=== PATIENT | female | born 1960 | race Caucasian/White ===

== ENCOUNTER 2019-10-27 00:27 | Emergency (ER) | payer OTHER, SELFPAY ==
--- NOTE | 2019-10-27 00:34 | ED_ITS ---
Entered by Silvia Jolly, acting as scribe for Lashell Smith HPI - General Adult General: Chief complaint: General Medical Stated complaint: BLOOD PRESSURE ISSUES Time Seen by Provider: 10/27/19 00:34 Source: patient Mode of arrival: ambulatory Limitations: no limitations History of Present Illness: HPI narrative: Patient was sent in by [facility] for low blood pressure. She states they were getting pressures in the 80s but they were not using a stethoscope and is uncertain how they were even accurately taking her blood pressure. Patient states she has no symptoms. She has no lightheadedness, dizziness, syncope, near syncope, chest pain, shortness of breath or any other concerns. She came in slowly to help keep her place at [facility] per their instruction. 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) Radiation: non-radiation Associated symptoms: Deny chest pain, confusion, diaphoresis, dyspnea, headache(s), malaise, nausea, rash, palpitations, syncope or vomiting Review of Systems General: Reports: other (negative unless marked) Const: Denies: fever, chills, body aches, fatigue, malaise or diaphoresis Eyes: Denies: change in vision or blurry vision ENMT: Denies: throat pain, painful swallowing, hoarseness, ear pain, ear discharge, Change in hearing or nasal discharge Card: Denies: chest pain, palpitations, irregular heart rhythm, syncope, pre- syncope, shortness of breath on exertion or shortness of breath when lying down Resp: Denies: shortness of breath, productive cough, non-productive cough, wheezing, coughing up blood or chest congestion GI: Denies: abdominal pain, nausea, vomiting, vomiting blood, coffee grounds in vomit, diarrhea, constipation, cramping, blood in stool or black tarry stool : Denies: flank pain, painful urination, urinary frequency, urinary urgency, decreased urine ouput, urinary incontinence or blood in urine Musc: Denies: neck pain, back pain, extremity pain, extremity swelling, joint pain, joint swelling, joint warmth or joint stiffness Skin/Breast: Denies: rash, skin tenderness or yellow skin Neuro: Denies: headache, numbness in extremities, weakness in extremities, changes in sensation, lack of coordination, difficulty walking, dizziness, vertigo or confusion Endo: Denies: excessive thirst, tired all the time, cold intolerance, excessive sweating, flushing or hot flashes Derrick/Lymph: Denies: easy bruising, easy bleeding, petechiae or enlarged lymph nodes All/Imm: Denies: hives, throat swelling, tongue swelling, facial swelling or acute wheezing PFSH ED PFSH: Statuses (acute, chronic, etc) shown below reflect problem list status as previously entered and may not be historically accurate Social History Smoking and tobacco status: current every day smoker Physical Exam Const: COMMON NORMALS: no apparent distress, oriented x3, no limitations, healthy appearing and well nourished EXAM LIMITATIONS: no altered mental status GENERAL APPEARANCE: cooperative, well kempt and well developed O RIENTATION/CONSCIOUSNESS: Yes awake HENMT: COMMON NORMALS: normocephalic, head/scalp atraumatic, hearing grossly normal bilaterally, external ears normal, EAC's normal, external nose normal and moist oral mucous membranes HEAD & SCALP: normal to inspection, normocephalic and atraumatic FACE & SINUS: normal facial exam and face symmetric NOSE: external nose normal and nares normal EXTERNAL EAR: Yes external ears normal EXTERNAL AUDITORY CANAL: EAC's normal MOUTH: oral and palatal mucosa normal and tongue normal Eye: COMMON NORMALS: PERRL, EOMs intact bilaterally, conjunctivae normal and no scleral icterus GENERAL EYE: normal appearance of both eyes and normal light reflex CONJUNCTIVA: Yes conjunctivae normal SCLERA: sclerae normal CORNEA: Yes corneas normal PUPIL: Yes PERRL DIRECT OPHTHALMOSCOPY: Yes n ormal light reflex Neck/C-Spine: COMMON NORMALS: full ROM, no lymphadenopathy, supple, no meningeal signs and no JVD GENERAL: Yes normal visual inspection and Yes trachea midline CERVICAL SPINE: Yes cervical ROM normal Chest: COMMONS NORMALS: inspection of chest normal and palpation of chest normal Resp: COMMON NORMALS: normal respiratory effort, no retractions, no use of accessory muscles and clear to auscultation bilaterally EFFORT & INSPECTION: Yes able to speak in complete sentences AUSCULTATION: clear to auscultation bilaterally Cardio: COMMON NORMALS: no JVD, regular rate, regular rhythm, S1 normal heart sound, S2 normal heart sound, no gallops, no clicks, no murmurs and no rub JUGULAR VENOUS DISTENTION: no JVD RATE: regular rate RHYTHM: regular rhythm HEART SOUNDS: S1 normal and S2 normal GI: COMMON NORMALS: soft to palpation, non-tender, no hepatosplenomegaly and no masses INSPECTION: Yes normal to inspection PALPATION: Yes soft and Yes no hepatosplenomegaly : COMMON NORMALS: Yes no CVA tenderness BLADDER/KIDNEY EXAM: Yes no CVA tenderness Back/Pelvis: COMMON NORMALS: no CVA tenderness, thoracic and lumbar spine normal to inspection, no thoracic nor lumbar tenderness and thoraco-lumbar ROM normal Extremity: COMMON NORMALS: normal to inspection, full ROM, normal capillary refill, no joint enlargement, no clubbing, cyanosis or edema and no calf tenderness Neuro: COMMON NORMALS: oriented x3, CN's II-XII intact bilaterally, moves all extremities, no focal motor deficits and no sensory deficits noted MENINGEAL SIGNS: Yes no meningeal signs Psych: COMMON NORMALS: mental status grossly normal, thought process normal, cooperative, affect normal, speech normal and activity/motor behavior normal APPEARANCE: Yes well kempt SPEECH: Yes normal speech THOUGHT PROCESS: normal thought process Skin: COMMON NORMALS: no rashes or lesions noted, skin turgor normal, no jaundice, no petechiae and no mottling GENERAL SKIN EXAM: no rashes or lesions noted and turgor normal Course Vital Signs: Vital signs: Vital Signs Temperature 97.5 F L 10/27/19 00:35 Pulse Rate 64 10/27/19 00:35 Respiratory Rate 18 10/27/19 00:46 Blood Pressure 110/42 10/27/19 00:46 Pulse Oximetry 94 10/27/19 00:35 MDM - General Adult MDM Narrative: Medical decision making narrative: The patient has no symptoms whatsoever and on multiple repeat blood pressure checks in both arms she is not hypotensive. Her blood pressures in the 100s to 1 teens. She has no complaints. Her vital signs are stable she is declining any work-up. I think this is appropriate and will discharge her home. She does understand she is free to return should she change her mind. Discharge Plan Discharge Patient Disposition: Home, Self-Care Clinical Impression: Hypotension, unspecified Qualifiers: Hypotension type: unspecified hypotension type Qualified Code(s): I95.9 - Hypotension, unspecified Condition: Stable Discharge Orders: Discharge Order (Routine); Ordered 10/27/19 Ordered By: Lashell Smith Referrals: Jadiel Vitale DO [Family Provider] - Harini Alonso DO [Physician] - 1 week Discharge Diet: Usual diet Discharge Activity: Resume usual activity Activity Restrictions/Additional Instructions: Please return to the ER immediately for any of the signs or symptoms listed on your discharge instruction sheets, worsening/changing of your symptoms, you are not getting better as quickly as expected, or for ANY other cause or concerns. You were sent here to be evaluated for low blood pressure but on multiple repeat exams you do not have low blood pressure. Without having any complaints I believe you are fine to go back to [facility]. Coding Level of Care Code ED Associate for Chg Fwd Exam Problem Focused The documentation recorded by the Rik cedeño Bridget Annette, accurately reflects the service I personally performed and the decisions made by me, Lashell Smith
[2019-10-27 00:35] VITALS: BP 101/55; PULSE 64; RESP 16; TEMP 36.4; O2SAT 94; BMI 17.2
[2019-10-27 00:46] VITALS: BP 110/42; RESP 18
== END 2019-10-27 01:02 | disposition home or self-care (01) ==
PROVIDERS: Emergency Provider Emergency Medicine; Family Provider Family Medicine
DX: I95.9 Hypotension, unspecified (principal); F17.210 Nicotine dependence, cigarettes, uncomplicated
CPT/HCPCS: 99281

== ENCOUNTER → 2020-04-24 14:00 | Outpatient (BNVA) | payer OTHER, SELFPAY | PROVIDERS: Family Provider Family Medicine; Visit Provider Nurse Practitioner Family | DX: Z20.828 Contact with and (suspected) exposure to other viral communicable diseases (principal) | CPT/HCPCS: 87635 ==

== ENCOUNTER → 2020-05-22 16:03 | Outpatient (BNVA) | payer OTHER, SELFPAY | PROVIDERS: Family Provider Family Medicine; Referring Provider Dermatology; Visit Provider Dermatology | DX: D48.9 Neoplasm of uncertain behavior, unspecified (principal); Z85.828 Personal history of other malignant neoplasm of skin; L57.0 Actinic keratosis; D17.9 Benign lipomatous neoplasm, unspecified; L98.9 Disorder of the skin and subcutaneous tissue, unspecified; D17.24 Benign lipomatous neoplasm of skin and subcutaneous tissue of left leg; F17.210 Nicotine dependence, cigarettes, uncomplicated | CPT/HCPCS: 11102; 17000; 17003; 88304; 88305; 99203; 99204 ==

== ENCOUNTER → 2020-06-27 08:50 | Outpatient (BNVA) | payer OTHER, SELFPAY | PROVIDERS: Family Provider Family Medicine; PCP Family Medicine; Visit Provider Dermatology | DX: C76.8 Malignant neoplasm of other specified ill-defined sites (principal); D48.9 Neoplasm of uncertain behavior, unspecified | CPT/HCPCS: 11602; 12032; 88304 ==

== ENCOUNTER 2020-07-11 13:56 | Outpatient (CLI) | payer OTHER, SELFPAY ==
--- NOTE | 2020-07-11 14:07 | CT_ITS ---
WS: [id number] LDCT LUNG CANCER SCREENING HISTORY: NICOTINE dependence, cigarettes. TECHNIQUE: Axial imaging performed from the apices to 1 cm below the costophrenic angles. Coronal and sagittal reformats are submitted with axial MIP series. All CT scans at [facility] use at least one of these dose optimization techniques: automated exposure control; mA and/or kV adjustment per patient size (includes targeted exams where dose is matched to clinical indication); or iterativ e reconstruction. DLP: 57.17 mGy.cm DIvol: 1.52 mGy COMPARISON: None available. Diagnostic quality: Satisfactory Lung Nodules: No pulmonary nodules or endobronchial lesions. No groundglass attenuation. Lungs: Moderate pulmonary emphysema. Heart: Normal size heart. Mild coronary artery atherosclerosis. No pericardial effusion. Other findings: RIGHT posterior diaphragmatic hernia. Mild atherosclerosis aorta. Normal size pulmona ry artery. Small hiatal hernia. CT/CT lung screening [id number] IMPRESSION: LUNG-RADS: 1-Negative FOLLOW UP: 12 Month: Continue annual screening with LDCT OTHER FINDINGS (S MODIFIER): None.
== END 2020-07-11 13:57 | disposition home or self-care (01) ==
LOC: CT 13:57
PROVIDERS: PCP Family Medicine; Visit Provider Family Medicine
DX: Z12.2 Encounter for screening for malignant neoplasm of respiratory organs (principal); F17.210 Nicotine dependence, cigarettes, uncomplicated; I70.0 Atherosclerosis of aorta; K44.9 Diaphragmatic hernia without obstruction or gangrene
CPT/HCPCS: G0297

== ENCOUNTER → 2020-09-03 10:15 | Outpatient (BNVA) | payer OTHER, SELFPAY | PROVIDERS: PCP Family Medicine; Visit Provider Family Medicine | DX: Z20.828 Contact with and (suspected) exposure to other viral communicable diseases (principal); Z01.812 Encounter for preprocedural laboratory examination | CPT/HCPCS: 87635 ==

== ENCOUNTER → 2021-07-10 10:57 | Outpatient (BNVA) | payer OTHER, SELFPAY | PROVIDERS: PCP Family Medicine | DX: Z20.822 Contact with and (suspected) exposure to COVID-19 (principal) | CPT/HCPCS: 87635 ==

== ENCOUNTER → 2022-05-13 08:50 | Outpatient (BNVA) | payer OTHER, SELFPAY | PROVIDERS: PCP Family Medicine; Visit Provider Family Medicine | DX: F32.9 Major depressive disorder, single episode, unspecified (principal); J43.1 Panlobular emphysema; Z13.6 Encounter for screening for cardiovascular disorders | CPT/HCPCS: 80053; 80061; 85025 ==

== ENCOUNTER → 2024-04-29 09:45 | Outpatient (BNVA) | payer OTHER, SELFPAY | PROVIDERS: PCP Family Medicine | DX: I10 Essential (primary) hypertension (principal); J43.1 Panlobular emphysema; Z13.6 Encounter for screening for cardiovascular disorders | CPT/HCPCS: 80053; 80061; 84443; 85025 ==

== ENCOUNTER 2025-05-10 08:09 | Outpatient (CLI) | payer OTHER, SELFPAY ==
--- NOTE | 2025-05-10 08:17 | XR_ITS ---
WS: [id number] Chest 2 views, 05/10/2025 Clinical Data: COPD Comparison: Two-view chest, 03/19/2018 Findings: No nodules, masses or effusions are seen. The heart is normal. The pulmonary vascularity is not increased. No pneumonia or pneumothorax is seen. The diaphragms are flattened. The aortic arch shows tortuosity. There are old healed right rib fractures. XR/XR chest 2V* [id number] Impression: Hyperinflation and atherosclerosis.
[2025-05-10 08:47] VITALS: PULSE 92; RESP 22
== END 2025-05-10 08:10 | disposition home or self-care (01) ==
LOC: RT 08:12
PROVIDERS: PCP Nurse Practitioner Family; Visit Provider Family Medicine Adolescent Medicine
DX: J44.9 Chronic obstructive pulmonary disease, unspecified (principal); I70.90 Unspecified atherosclerosis; Q25.46 Tortuous aortic arch; J98.4 Other disorders of lung; Z87.81 Personal history of (healed) traumatic fracture
CPT/HCPCS: 71046; 94060; 94618; J7613

== ENCOUNTER 2025-08-25 15:31 | Emergency (ER) | payer MEDICARE, SELFPAY ==
[2025-08-25 15:36] VITALS: BP 127/67; PULSE 90; RESP 18; TEMP 36.9; O2SAT 94; BMI 18.3
--- NOTE | 2025-08-25 15:41 | XRR_ITS ---
PROCEDURE INFORMATION: Exam: XR Chest Exam date and time: 08/25/2025 3:46 PM Age: 65 years old Clinical indication: Shortness of breath; Additional info: SOB TECHNIQUE: Imaging protocol: Radiologic exam of the chest. Views: 1 view. COMPARISON: CR XR chest 2V* [id number] 05/10/2025 8:22 AM FINDINGS: Lungs: Hyperexpanded lungs; correlate for chronic obstructive pulmonary disease.No consolidative airspace disease. Pleural spaces: Unremarkable. No pleural effusion. No pneumothorax. Heart/Mediastinum: Unremarkable. No cardiomegaly. Bones/joints: Spinal scoliosis. Old rib fractures. XR/XR chest 1V portable [id number] IMPRESSION: No acute cardiopulmonary findings.
--- NOTE | 2025-08-25 15:41 | ECG_ITS ---
[facility] Test Date: 2025-08-25 Pat Name: Beatriz Atkinson Department: Room: Gender: Female Nutrition Worker: : 1960 Requested By: Bella Doyle Order Number: [id number] Alix MD: Wilfrido Frias M.D. Measurements Intervals Tilly Rate: 91 P: 81 MI: 113 QRS: 37 QRSD: 82 T: 69 QT: 338 QTc: 416 Interpretive Statements SINUS RHYTHM WITH SHORT MI INTERVAL POSSIBLE LEFT ATRIAL ENLARGEMENT [-0.1mV P-WAVE IN V1/V2] POSSIBLE LEFT VENTRICULAR HYPERTROPHY [VOLTAGE CRITERIA PLUS LAE OR QRS WIDENING] No previous ECG available for comparison Electronically Signed On 08-26-2025 15:39:16 ASSOCIATE FINANCIAL ADVISOR by Wilfrido Frias M.D. [email or web address]
[2025-08-25 16:17] LABS: Hematocrit 39.6 % (36-47); Hemoglobin 12.30 g/dL (11.27-16.99); Mean Corpuscular HGB Conc 31.1 g/dL (30-55); Mean Corpuscular Hemoglobin 28.7 pg (27-33); Mean Corpuscular Volume 92.5 fl (85-98); Nucleated Red Blood Cells % 0 %; Platelet Count 170 10^3/cmm (157-399); Red Blood Count 4.28 10^6/uL (3.85-5.65); White Blood Count 5.05 10^3/uL (3.29-11.43)
--- NOTE | 2025-08-25 16:37 | W.ED.URI ---
HPI - URI/Sore Throat General: Chief Complaint: Upper Respiratory Infection Stated Complaint: Headache SOB can't eat (COPD) Time Seen by Provider: 08/25/25 16:23 Source: patient Mode of arrival: ambulatory Limitations: no limitations History of Present Illness: 65-year-old female states that she has a history of COPD is on 4 L oxygen at baseline states that over the last 2 days she has had nasal congestion along with sinus pressure pain and a slight cough. Patient denies any fevers she is currently on her 4 L here in the 98% on that. Denies any chest pain. Denies any vomiting or diarrhea. Able to speak in full senses Related Data Previous Rx's ?Medication ?Instructions ?Recorded portable O2 with concentrator #1 ea 11/21/22 albuterol sulfate 2.5 mg/3 mL 2.5 mg (3 mL) inhalation Q6H #180 04/20/23 (0.083 %) solution for nebulization mL fluticasone propionate 50 1 spray intranasal BID #16 grams 08/22/24 mcg/actuation nasal spray,suspension (Flonase Allergy Relief) nebulizer, tubing, and supplies #1 ea 01/19/25 fluticasone fur. 100 mcg-umeclid 1 inh inhalation Q24H #60 ea 06/08/25 62.5 mcg-vilant 25 mcg inhalat.powder (Trelegy Ellipta) oxygen #1 ea 06/08/25 buspirone 10 mg tablet See Rx Instructions .Route 07/24/25 .COMPLEX #30 tabs RSVPreF3 antigen-AS01E 0.5 ml IM ONCE #1 ea 08/02/25 adjuvant(PF) 120 mcg/0.5 mL IM suspension, kit (Arexvy (PF)) citalopram 40 mg tablet See Rx Instructions .Route 08/08/25 .COMPLEX #90 tabs albuterol sulfate 90 mcg/actuation See Rx Instructions .Route 08/21/25 aerosol inhaler .COMPLEX #8.5 grams lisinopril 5 mg tablet See Rx Instructions .Route 08/23/25 .COMPLEX #30 tabs cephalexin 500 mg capsule 500 mg PO TID 7 days #21 caps 08/25/25 Allergies Allergy/AdvReac Type Severity Reaction Status Date / Time No Known Allergies Allergy Verified 06/08/25 09:03 PFSH ED PFSH: Medical History Hypertension COPD (chronic obstructive pulmonary disease) Depression Skin erosion History of nonmelanoma skin cancer Surgical History History of section History of tonsillectomy and adenoidectomy Family History Grandmother Cancer Social History Smoking and tobacco/nicotine status: current every day tobacco/nicotine user cigarettes Packs smoked per day: 0.5 Alcohol intake: never Substance/Drug Use: never Adopted: No service: No Current occupational exposures/hazards: No Physical Exam Const: COMMON NORMALS: patient oriented x3 HENMT: COMMON NORMALS: normocephalic and atraumatic HEAD & SCALP: normocephalic and atraumatic Neck/C-Spine: COMMON NORMALS: full ROM and supple Chest: COMMONS NORMALS: normal inspection of the chest Resp: COMMON NORMALS: No retractions and No use of accessory muscles AUSCULTATION: wheezes Cardio: COMMON NORMALS: regular rate RATE: regular rate Extremity: COMMON NORMALS: normal to inspection and full ROM Neuro: COMMON NORMALS: patient oriented x3, moves all extremities and no focal motor deficits Psych: COMMON NORMALS: mental status grossly normal, Normal thought process present and cooperative THOUGHT PROCESS: Normal thought process present Skin: COMMON NORMALS: no rashes or lesions noted and no wounds GENERAL SKIN EXAM: no rashes or lesions noted Course Vital Signs: Vital signs: Vital Signs Temperature 98.4 F 08/25/25 15:36 Pulse Rate 93 08/25/25 16:55 Respiratory Rate 18 08/25/25 15:36 Blood Pressure 148/71 08/25/25 16:55 Pulse Oximetry 98 08/25/25 16:55 Oxygen Delivery Me thod Nasal Cannula 08/25/25 16:55 Oxygen Flow Rate 4 08/25/25 16:55 MDM - URI/Sore Throat Medical Decision Making 65-year-old female extensive history of COPD is on home oxygen at 4 L had had some sinus congestion cough. Differential includes pneumonia, upper respiratory infection. She has been well-appearing here she is in no distress on her 4 L chest x-ray interpreted by me showed no signs of pneumonia. EKG interpreted by me showed normal sinus rhythm heart rate [address] or T wave abnormalities QRS 82 QTc 386. Labs show no significant abnormality. This is likely upper respiratory infection possible sinusitis did give her Decadron here will prescribe her Keflex for home she is to follow-up with her PCP and return if worsening she understands agrees to plan. Medical Records I reviewed the patient's medical records. Lab Data I reviewed the patient's lab results. 08/25/25 16:13 08/25/25 16:13 Radiology Impressions Chest X-Ray 08/25/25 15:41 IMPRESSION: No acute cardiopulmonary findings. Laboratory Results WBC 5.05 10^3/uL (3.29-11.43) 08/25/25 16:13 RBC 4.28 10^6/uL (3.85-5.65) 08/25/25 16:13 Hgb 12.30 g/dL (11.27-16.99) 08/25/25 16:13 Hct 39.6 % (36-47) 08/25/25 16:13 MCV 92.5 fl (85-98) 08/25/25 16:13 MCH 28.7 pg (27-33) 08/25/25 16:13 MCHC 31.1 g/dL (30-55) 08/25/25 16:13 RDW 13.2 % (12.1-15.1) 08/25/25 16:13 Plt Count 170 10^3/cmm (157-399) 08/25/25 16:13 MPV 8.4 fL (7.4-10.4) 08/25/25 16:13 Neut % (Auto) 49.8 % 08/25/25 16:13 Lymph % (Auto) 34.5 % 08/25/25 16:13 Pondera % (Auto) 11.3 % 08/25/25 16:13 Eos % (Auto) 3.2 % 08/25/25 16:13 Baso % (Auto) 1.0 % 08/25/25 16:13 Neut # (Auto) 2.52 10^3/uL (1.8-7.7) 08/25/25 16:13 Lymph # (Auto) 1.7 10^3/uL (0.8-4.8) 08/25/25 16:13 Pondera # (Auto) 0.6 10^3/uL (0.2-0.9) 08/25/25 16:13 Eos # (Auto) 0.2 10^3/uL (0.0-0.8) 08/25/25 16:13 Baso # (Auto) 0.1 10^3/uL (0.0-0.1) 08/25/25 16:13 Nucleated RBC % (auto) 0 % 08/25/25 16:13 Nucleated RBCs # 0.0 /100WBC 08/25/25 16:13 Sodium 134 mmol/L (136-145) L 08/25/25 16:13 Potassium 4.6 mmol/L (3.5-5.1) 08/25/25 16:13 Chloride 90 mmol/L (98-107) L 08/25/25 16:13 Carbon Dioxide 41 mmol/L (22-29) H 08/25/25 16:13 Anion Gap 7.6 (5-19) 08/25/25 16:13 BUN 7 mg/dL (8-23) L 08/25/25 16:13 Creatinine 0.4 mg/dL (0.5-0.9) L 08/25/25 16:13 GFR Calculation 160.2 mL/min (90-130) H 08/25/25 16:13 Glucose 101 mg/dL (65-115) 08/25/25 16:13 Calculated Osmolality 276 mOsm/kg (285-295) L 08/25/25 16:13 Calcium 9.9 mg/dL (8.5-10.5) 08/25/25 16:13 Total Bilirubin 0.2 mg/dL (0.15-1.2) 08/25/25 16:13 AST 16 U/L (0-32) 08/25/25 16:13 ALT 12 U/L (0-33) 08/25/25 16:13 Alkaline Phosphatase 72 U/L (35-105) 08/25/25 16:13 NT-Pro-B Natriuret Pep 195 pg/mL (0-125) H 08/25/25 16:13 Total Protein 6.3 g/dL (6.6-8.7) L 08/25/25 16:13 Albumin 4.2 g/dL (3.5-5.2) 08/25/25 16:13 Globulin 2.1 g/dL (1.3-4.6) 08/25/25 16:13 Influenza A (PCR) Negative (Negative) 08/25/25 16:22 Influenza Type B (PCR) Negative (Negative) 08/25/25 16:22 RSV (PCR) Negative (Negative) 08/25/25 16:22 SARS-CoV-2 (PCR) Negative (Negative) 08/25/25 16:22 All radiology interpretation(s) finalized by discharge EKG Data EKG 1: I personally reviewed and interpreted this EKG as follows: EKG interpretation date: 08/25/25 EKG interpretation time: 16:35 Interpretation: nsr hr [address] or t wave abnormalities qrs 82 qtc 386 Discharge Plan Discharge Patient Disposition: Home Clinical Impression: Upper respiratory infection Condition: Stable Prescriptions: New cephalexin 500 mg capsule 500 mg PO TID 7 Days Qty: 21 0RF No Action (DME) portable O2 with concentrator See Rx Instructions .Route .MEDSUPPLY Qty: 1 0RF Rx Instructions: At 2 L albuterol sulfate 2.5 mg /3 mL (0.083 %) solution for nebulization 2.5 mg inhalation Q6H Qty: 180 5RF (DME) nebulizer, tubing, and supplies See Rx Instructions .Route .MEDSUPPLY Qty: 1 0RF Rx Instructions: As directed Trelegy Ellipta 100-62.5-25 mcg blister with device 1 inh INHALATION Q24H Qty: 60 3RF (DME) oxygen See Rx Instructions .Route .MEDSUPPLY Qty: 1 0RF Rx Instructions: 2 liter per nasal cannula and 4 liters with ambulation fluticasone propionate [Flonase Allergy Relief] 50 mcg/actuation spray,suspension 1 spray intranasal BID Qty: 16 2RF Rx Instructions: administer into each nostril buspirone 10 mg tablet See Rx Instructions .ROUTE .COMPLEX Qty: 30 2RF Dose Instruction: TAKE 1 TABLET BY MOUTH EVERY DAY Rx Instructions: TAKE 1 TABLET BY MOUTH EVERY DAY Arexvy (PF) 120 mcg/0.5 mL suspension for reconstitution 0.5 ml IM ONCE Qty: 1 0RF citalopram 40 mg tablet See Rx Instructions .ROUTE .COMPLEX Qty: 90 0RF Dose Instruction: TAKE 1 TABLET BY MOUTH EVERY DAY Rx Instructions: TAKE 1 TABLET BY MOUTH EVERY DAY albuterol sulfate 90 mcg/actuation HFA aerosol inhaler See Rx Instructions .ROUTE .COMPLEX Qty: 8.5 2RF Dose Instruction: INHALE TWO PUFFS BY MOUTH six times PER DAY NEEDED FOR SHORTNESS OF BREATH or wheezing Rx Instructions: INHALE TWO PUFFS BY MOUTH six times PER DAY NEEDED FOR SHORTNESS OF BREATH or wheezing lisinopril 5 mg tablet See Rx Instructions .ROUTE .COMPLEX Qty: 30 2RF Dose Instruction: TAKE 1 TABLET BY MOUTH DAILY Rx Instructions: TAKE 1 TABLET BY MOUTH DAILY Discharge Orders: Discharge ED (Routine); Ordered 08/25/25 Ordered By: Bella Doyle Referrals: Dana Preston FNP [Primary Care Provider, Family Practice] - 4-7 days Discharge Diet: Advance as tolerated Discharge Activity: Resume usual activity Patient Instructions: Upper Respiratory Infection (ED) Print Language: Slovenian Coding Level of Care Code ED Advertising Sales Representative for Cecelia Haynes
[2025-08-25 16:45] LABS: Alanine Aminotransferase 12 U/L (0-33); Albumin Level 4.2 g/dL (3.5-5.2); Alkaline Phosphatase 72 U/L (35-105); Aspartate Amino Transferase 16 U/L (0-32); Blood Urea Nitrogen 7 mg/dL (8-23); Calcium 9.9 mg/dL (8.5-10.5); Chloride 90 mmol/L (98-107); Globulin 2.1 g/dL (1.3-4.6); Glucose 101 mg/dL (65-115); NT Pro B Type Natriuretic Pept 195 pg/mL (0-125); Osmolality Calculated 276 mOsm/kg (285-295); Sodium 134 mmol/L (136-145); Total Protein 6.3 g/dL (6.6-8.7)
[2025-08-25 16:49] LABS: Carbon Dioxide 41 mmol/L (22-29)
[2025-08-25 16:52] LABS: Anion Gap 7.6 (5-19); Potassium 4.6 mmol/L (3.5-5.1)
[2025-08-25 16:55] VITALS: BP 148/71; PULSE 93; O2SAT 98
[2025-08-25 17:14] LABS: Respiratory Syncytial Virus Ce NEGATIVE (Negative); SARS-CoV-2 PCR NEGATIVE (Negative)
[2025-08-25 17:18] VITALS: BP 148/71; PULSE 96; O2SAT 98
== END 2025-08-25 17:20 | disposition home or self-care (01) ==
PROVIDERS: Emergency Provider Emergency Medicine; PCP Nurse Practitioner Family
DX: J06.9 Acute upper respiratory infection, unspecified (principal); Z11.52 Encounter for screening for COVID-19; F17.210 Nicotine dependence, cigarettes, uncomplicated; J44.9 Chronic obstructive pulmonary disease, unspecified; I10 Essential (primary) hypertension; Z85.828 Personal history of other malignant neoplasm of skin
CPT/HCPCS: 36415; 71045; 80053; 83880; 85025; 87637; 93005; 96372; 99285; J1100